=== PATIENT | male | born 1985 | race Two or more races ===

== ENCOUNTER 2020-10-14 16:17 | Emergency (ER) | payer BC ==
[~2020-10-14] VITALS: Ht 175.3 cm; Wt 100.0 kg
[2020-10-14 16:25] VITALS: BP 168/102
[2020-10-14] MEDS ORDERED: ketorolac tromethamine 15mg/ml inj. IM ONE (17:40)
== END 2020-10-14 18:08 | disposition home or self-care (01) ==
LOC: ER 16:18
DX: M79.661 Pain in right lower leg (principal)
CPT/HCPCS: 93971; 96372; 99284; J1885